=== PATIENT | female | born 1985 | race Caucasian/White ===

== ENCOUNTER 2022-04-03 14:18 | Emergency (ER) | payer OTHER ==
[~2022-04-03] VITALS: Ht 172.7 cm; Wt 59.0 kg
[~2022-04-03 14:18] MED LIST: BUSPIRONE HCL10 MG PO; RESTORIL15 MG PO
[2022-04-03] MEDS ORDERED: BUSPIRONE HCL10 MG PO (17:47)
[2022-04-03] MEDS ORDERED: FAMOTIDINE20 MG PO (17:47)
[2022-04-03] MEDS ORDERED: ACYCLOVIR400 MG PO (17:47)
[2022-04-03] MEDS ORDERED: QUETIAPINE FUM100 MG PO (17:47)
[2022-04-03] MEDS ORDERED: DICYCLOMINE HCL10 MG PO (17:48)
== END 2022-04-03 20:31 | disposition home or self-care (01) ==
LOC: ED 14:18
PROC: 0HBRXZZ Excision of Toe Nail, External Approach (ICD-10-PCS; principal; 2022-04-03)
DX: L60.0 Ingrowing nail (principal); Z88.8 Allergy status to other drugs, medicaments and biological substances; Z79.899 Other long term (current) drug therapy
CPT/HCPCS: 11750; 99283-25

== ENCOUNTER 2023-09-17 11:01 | Emergency (ER) | payer OTHER ==
[~2023-09-17] VITALS: Ht 172.7 cm; Wt 80.1 kg
[~2023-09-17 11:01] MED LIST changes: +ACYCLOVIR400 MG PO; +DICYCLOMINE HCL10 MG PO; +FAMOTIDINE20 MG PO; +QUETIAPINE FUM100 MG PO
[2023-09-17] MEDS ORDERED: CYCLOBENZAPRINE HCL 10 MG TAB PO ONE (13:15)
[2023-09-17] MEDS ORDERED: predniSONE 20 MG TAB PO ONE (13:15)
[2023-09-17] MEDS ORDERED: KETOROLAC TROMETHAMINE 60 MG/2 ML VIAL IM ONE (13:15)
[2023-09-17] MEDS ORDERED: METHYLPREDNISOLO4 M1 PO (14:38)
[2023-09-17] MEDS ORDERED: CYCLOBENZAPRINE10 MG PO (14:38)
[2023-09-17 14:50] VITALS: BP 122/83
== END 2023-09-17 14:50 | disposition home or self-care (01) ==
LOC: ED 11:01
DX: M54.12 Radiculopathy, cervical region (principal); G43.909 Migraine, unspecified, not intractable, without status migrainosus; G47.30 Sleep apnea, unspecified; Z88.8 Allergy status to other drugs, medicaments and biological substances; Z79.899 Other long term (current) drug therapy
CPT/HCPCS: 96372; 99283; J1885

== ENCOUNTER 2024-01-14 09:36 | Emergency (ER) | payer OTHER ==
[~2024-01-14] VITALS: Ht 172.7 cm; Wt 63.8 kg
[~2024-01-14 09:36] MED LIST changes: +CYCLOBENZAPRINE10 MG PO; +METHYLPREDNISOLO4 M1 PO
[2024-01-14] MEDS ORDERED: RIZATRIPTAN10 M1 PO (09:44)
[2024-01-14] MEDS ORDERED: predniSONE 20 MG TAB PO ONE (10:30)
[2024-01-14] MEDS ORDERED: KETOROLAC TROMETHAMINE 60 MG/2 ML VIAL IM ONE (10:30)
[2024-01-14] MEDS ORDERED: LYRICA200 MG PO (10:33)
[2024-01-14 11:45] VITALS: BP 150/105
== END 2024-01-14 11:35 | disposition home or self-care (01) ==
LOC: ED 09:36
DX: M54.2 Cervicalgia (principal); M54.9 Dorsalgia, unspecified; M79.7 Fibromyalgia; G89.29 Other chronic pain; G43.909 Migraine, unspecified, not intractable, without status migrainosus; Z79.899 Other long term (current) drug therapy; Z88.6 Allergy status to analgesic agent; Z88.1 Allergy status to other antibiotic agents; Z88.8 Allergy status to other drugs, medicaments and biological substances
CPT/HCPCS: 96372; 99283-25; J1885; J7512